=== PATIENT | female | born 2000 | race Native Hawaiian/Other Pacific Islander ===

== ENCOUNTER 2018-11-29 05:40 | Emergency (ER) | payer OTHER ==
[~2018-11-29] VITALS: Ht 157.5 cm; Wt 56.2 kg
[2018-11-29 05:49] VITALS: BP 121/51
--- NOTE | 2018-11-29 05:54 | NUR ---
PT AMBULATED TO BED 9 WITH VSS.
[2018-11-29 06:12] LABS: BASOPHILS % (AUTO) 0.6 % (0.0-2.0); EOSINOPHILS # (AUTO) 0.3 K/uL (0-0.4); EOSINOPHILS % (AUTO) 3.8 % (0.0-4.0); HEMATOCRIT 44.1 % (36-48); HEMOGLOBIN 14.3 g/dL (12.0-16.0); LYMPHOCYTES # (AUTO) 2.2 K/uL (2.5-16.5); LYMPHOCYTES % (AUTO) 27.1 % (20.5-51.1); MEAN CORPUSCULAR HEMOGLOBIN 28 pg (27-31); MEAN CORPUSCULAR HGB CONC 32 g/dL (33-37); MEAN CORPUSCULAR VOLUME 87.6 fL (80-94); MONOCYTES # (AUTO) 0.5 K/uL (0.8-1.0); MONOCYTES % (AUTO) 6.7 % (1.7-9.3); NEUTROPHILS # (AUTO) 4.9 K/uL (1.8-7.7); NEUTROPHILS % (AUTO) 61.8 % (42.2-75.2); PLATELET COUNT (AUTO) 185 K/uL (140-450); RED BLOOD CELL COUNT(AUTO) 5.03 MIL/uL (4.20-5.40); RED CELL DISTRIBUTION WIDTH 14.2 % (11.6-13.7); WHITE BLOOD COUNT (AUTO) 7.9 K/uL (4.5-11.0)
--- NOTE | 2018-11-29 06:14 | NUR ---
PT TO ED PRESENTING WITH BILATERAL LOWER QUADRANT ABD PAIN SUDDEN ONSET X 1 HR AGO. PT DENIES N/V/D. ABD IS SOFT NON TENDER WITH +BOWEL SOUNDS TO ALL QUADRANTS. PT REPORTS PAIN UPON PALPATION TO LOWER QUADRANTS. PT PLACED INTO BED, PENDING MD COTA. PMH--DENIES RX-DENIES
[2018-11-29] MEDS ORDERED: KETOROLAC 30 MG/ML VIAL IM ONE (06:20)
[2018-11-29] MEDS ORDERED: KETOROLAC 30 MG/ML VIAL ONE (06:35)
[2018-11-29 06:57] LABS: APPEARANCE,URINE CLEAR (CLEAR); BILIRUBIN,URINE NEGATIVE (NEGATIVE); BLOOD, URINE NEGATIVE (NEGATIVE); COLOR,URINE YELLOW (YELLOW); LEUKOCYTE ESTERASE ,URINE NEGATIVE (NEGATIVE); NITRITE, URINE NEGATIVE (NEGATIVE); UGLUCOSE NEGATIVE (NEGATIVE)
--- NOTE | 2018-11-29 07:01 | NUR ---
PT TO CT VIA WC
--- NOTE | 2018-11-29 07:16 | NUR ---
REPORT TO DIANA BUNCH FOR TRANSFER OF CARE.
--- NOTE | 2018-11-29 07:18 | NUR ---
PT VERBALIZES RELIEF FROM PAIN;5/10 PAIN SCALE.NO FACIAL GRIMMACING.WILL TO CONTINUE TO MONITOR PT.
[2018-11-29 07:30] LABS: ANION GAP 10.5 (8-16); CARBON DIOXIDE 28.1 mmol/L (21-32); CREATININE 0.8 mg/dL (0.6-1.3); POTASSIUM 3.6 mmol/L (3.5-5.1)
[2018-11-29 07:38] LABS: ALBUMIN 3.5 g/dL (3.4-5.0); TOTAL BILIRUBIN 0.2 mg/dL (0.0-1.0)
--- NOTE | 2018-11-29 08:41 | NUR ---
PT WAITING FOR CT SCAN RESULT.
[2018-11-29 09:05] VITALS: BP 110/72
== END 2018-11-29 09:05 | disposition home or self-care (01) ==
LOC: MED 05:40
DX: N94.0 Mittelschmerz (principal)
CPT/HCPCS: 36415; 74176; 80053; 81003; 81025; 85025; 87086; 96372; 99284; J1885